=== PATIENT | male | born 1950 | race Caucasian/White ===

== ENCOUNTER 2016-06-07 20:38 | Emergency (ER) | payer OTHER ==
[~2016-06-07] VITALS: Ht 177.8 cm; Wt 118.5 kg
[~2016-06-07 20:38] MED LIST: ATOR80TA PO; BENZ100 PO; FLUT50I NASAL; GLUCTAB PO; MELO15TA2 PO; NACL.65%I; OMEP20TA PO; ULTR50TA PO
[2016-06-07 20:40] VITALS: BP 162/70; PULSE 80; RESP 16; TEMP 98.2; O2SAT 99
[2016-06-07] MEDS ORDERED: SODIUM CHLORIDE 0.9% FLUSH 5 ML FLUSH IVF PRN (21:00)
[2016-06-07 21:04] VITALS: BP 162/70; PULSE 68; RESP 16; O2SAT 99
[2016-06-07 21:40] VITALS: BP 138/72; PULSE 74; RESP 16; O2SAT 100
[2016-06-07 21:40] LABS: GLUCOSE,URINE NEG (NEG); KETONE, URINE NEG (NEG); NITRITE,URINE NEG (NEG)
--- NOTE | 2016-06-07 21:43 | PD ---
HPI Chief Complaint: Syncope/Near-Syncope Time Seen by Provider: 20:46 Travel History International Travel<30 days: No Contact w/Intl Traveler<30days: No Traveled to known affect area: No History of Present Illness HPI The patient 65 years old. He has been constipated for one day and a half. He has a history of invasive vagal syncope. While attempting to defecate, the patient loses consciousness. This is happened 4 times today. The patient has been unable to urinate throughout the course of the day as well. Positive flatus reported. No vomiting reported. He has been admitted past due to recurrent syncope episodes of coughing, approximately 10 months prior. Neurology , cardiology, and pulmonology evaluations were performed. Patient was found to have asthmatic bronchitis however workups otherwise including EEG, carotid ultrasound, Holter monitor evaluation, echocardiogram, lab work and routine imaging were unremarkable. The patient was advised to use omeprazole and saline nasal irrigation upon discharge. PFSH Past Medical History Asthma: No Blood Disorders: No Heart Rhythm Problems: No Cancer: No Cardiovascular Problems: Yes High Cholesterol: Yes Chemotherapy: No Chest Pain: No Congestive Heart Failure: No COPD: No Diabetes: Yes Patient Takes Glucophage: Yes Diminished Hearing: No Gastrointestinal Disorders: No Genitourinary: No Hypertension: No Immune Disorder: No Implanted Vascular Access Dvce: Yes Musculoskeletal: Yes (rotator cuff sx,cervical spinal fusion c5-c6,carpal tunnel) Neurologic: No Psychiatric: No Respiratory: Yes Immunizations Current: Yes Radiation Therapy: No Sleep Apnea: No Thyroid Disease: No ?: Not Past Surgical History Body Medical Devices: c5-c6 plate and screw to right rotator Other Surgery: Yes Social History Alcohol Use: No Tobacco Use: No Substance Use: No Allergies-Medications (Allergen,Severity, Reaction): Coded Allergies: Iodine (Verified Allergy, Severe, 06/07/16) Shellfish (Verified Allergy, Severe, 06/07/16) Vicodin (Verified Allergy, Severe, 06/07/16) Morphine (Verified Allergy, Mild, 06/07/16) Reported Meds & Prescriptions Reported Meds & Active Scripts Active Polyethylene Glycol 3350 Powder (Polyethylene Glycol) 17 Gm Pow 17 Gm PO ONCE Percocet (Oxycodone-Acetaminophen) 5-325 mg Tab 2 Tab PO Q6H PRN Reported Omeprazole 20 Mg Tab 20 Mg PO DAILY Metformin ER (Metformin HCl) 500 Mg Agustin 500 Mg PO DAILY With evening meal Atorvastatin (Atorvastatin Calcium) 40 Mg Tab 40 Mg PO HS Review of Systems Except as stated in HPI: all other systems reviewed are Neg Physical Exam Narrative GENERAL: 65 M, NAD, WNWD, no acute distress RECTAL: Pt refused rectal exam however states he felt stool whilst in attempt to self disimpact. SKIN: Warm and dry. HEAD: Atraumatic. Normocephalic. EYES: Pupils equal and round. No scleral icterus. No injection or drainage. ENT: No nasal bleeding or discharge. Mucous membranes pink and moist. NECK: Trachea midline. No JVD. CARDIOVASCULAR: Regular rate and rhythm. RESPIRATORY: No accessory muscle use. Clear to auscultation. Breath sounds equal bilaterally. GASTROINTESTINAL: Abdomen soft, non-tender, nondistended. Hepatic and splenic margins not palpable. MUSCULOSKELETAL: Extremities without clubbing, cyanosis, or edema. No obvious deformities. NEUROLOGICAL: Awake and alert. No obvious cranial nerve deficits. Motor grossly within normal limits. Five out of 5 muscle strength in the arms and legs. Normal speech. PSYCHIATRIC: Appropriate mood and affect; insight and judgment normal. Data Data Last Documented VS Vital Signs Date Time Temp Pulse Resp B/P Pulse Ox O2 Delivery O2 Flow Rate FiO2 06/07/16 23:53 77 16 147/73 99 06/07/16 21:04 Room Air 06/07/16 20:40 98.2 VS reviewed Orders Electrocardiogram (06/07/16 20:52) Basic Metabolic Panel (Bmp) (06/07/16 20:52) Complete Blood Count With Diff (06/07/16 20:52) Magnesium (Mg) (06/07/16 20:52) Troponin I (06/07/16 20:52) Urinalysis - C+S If Indicated (06/07/16 20:52) Blood Glucose (06/07/16 20:52) Ecg Monitoring (06/07/16 20:52) Iv Access Insert/Monitor (06/07/16 20:52) Oximetry (06/07/16 20:52) Sodium Chloride 0.9% Flush (Ns Flush) (06/07/16 21:00) Urinary Catheter Insert/Apply (06/07/16 20:52) Oxycodone-Acetamin 5-325 Mg (Percocet (06/07/16 23:45) Labs Laboratory Tests Test 06/07/16 06/07/16 21:20 21:50 Urine Collection Type VOIDED Urine Color YELLOW Urine Turbidity CLEAR Urine pH 6.0 Urine Specific [place] 1.030 Urine Protein NEG mg/dL Urine Glucose (UA) NEG mg/dL Urine Ketones NEG mg/dL Urine Occult Blood MOD Urine Nitrite NEG Urine Bilirubin NEG Urine Leukocyte Esterase NEG Urine WBC 0-2 /hpf Urine Squamous Epithelial 0-3 /hpf Cells Urine Mucus FEW /lpf Microscopic Urinalysis Comment CULT NOT INDICATED White Blood Count 15.4 TH/MM3 Red Blood Count 4.53 MIL/MM3 Hemoglobin 13.9 GM/DL Hematocrit 41.1 % Mean Corpuscular Volume 90.9 FL Mean Corpuscular Hemoglobin 30.7 PG Mean Corpuscular Hemoglobin 33.8 % Concent Red Cell Distribution Width 12.8 % Platelet Count 253 TH/MM3 Mean Platelet Volume 8.7 FL Neutrophils (%) (Auto) 84.5 % Lymphocytes (%) (Auto) 10.2 % Monocytes (%) (Auto) 4.2 % Eosinophils (%) (Auto) 0.3 % Basophils (%) (Auto) 0.8 % Neutrophils # (Auto) 13.1 TH/MM3 Lymphocytes # (Auto) 1.6 TH/MM3 Monocytes # (Auto) 0.6 TH/MM3 Eosinophils # (Auto) 0.0 TH/MM3 Basophils # (Auto) 0.1 TH/MM3 CBC Comment AUTO DIFF Differential Comment AUTO DIFF CONFIRMED Platelet Estimate NORMAL Platelet Morphology Comment NORMAL Sodium Level 144 MEQ/L Potassium Level 4.0 MEQ/L Chloride Level 110 MEQ/L Carbon Dioxide Level 26.6 MEQ/L Anion Gap 7 MEQ/L Blood Urea Nitrogen 15 MG/DL Creatinine 1.10 MG/DL Estimat Glomerular Filtration 67 ML/MIN Rate Random Glucose 104 MG/DL Calcium Level 9.1 MG/DL Magnesium Level 2.4 MG/DL Troponin I LESS THAN 0.02 NG/ML [facility] Medical Decision Making Medical Screen Exam Complete: Yes Emergency Medical Condition: Yes Differential Diagnosis Constipation, obstruction, arrhythmia, electrolyte imbalance Narrative Course CBC & BMP Diagram 06/07/16 21:50 Tn < 0.02 Patient reassessed a few times. Is complaining involved into pain in the region of the right groin where palpable hernia was appreciable. He complained about pain in the rectum due to constipation. Rectal exam was refused. He did state that a fair amount of liquid stool was passed today and that he felt hard stool in the vault while trying to disimpact himself today. Continued application of Fleet enemas coupled with aggressive oral hydration discussed. At home constipation remedies were discussed. MiraLAX as a last resort was discussed. We'll provide the patient with some Percocet for control of pain overnight, unlikely to worsen hard stool in rectal vault, a plan with which the patient was quite amenable. Return precautions discussed. present throughout. He is ready for discharge. Apparent syncopal type episodes were observed by me while the patient was on a monitor. Heart rhythm and rate and O2 sat remained unchanged during the apparent episodes which lasted less than 1- 2 seconds. No blood pressure change occurred. Skin remained warm and dry during apparent syncope type episodes. These were also observed a few times by the nurse as well. Diagnosis Primary Impression: Constipation Qualified Code: K59.00 - Constipation, unspecified constipation type Additional Impression: Syncope, vasovagal Referrals: Primary Care Physician 1 day Additional Instructions: You have a choice when it comes to health care, and we are glad that you chose [facility]. Hopefully, we have met your expectations on today's visit. You are welcome to return to [facility] at any time, as we are committed to meeting the health care needs of our community. Med/Other Pt SpecificInfo: Prescription(s) given Scripts Polyethylene Glycol 3350 Powder 17 Gm Pow17 Gm PO ONCE #1 BOTTLE Ref 0 Prov:Vince Cortez MD 06/07/16 Oxycodone-Acetaminophen (Percocet)5-325 mg Tab2 Tab PO Q6H PRN (PAIN SCALE 6 TO 10) #6 TAB Ref 0 Prov:Vince Cortez MD 06/07/16 Disposition: 01 DISCHARGE HOME Condition: Stable Vince Cortez MD Jun 07, 2016 21:43
[2016-06-07] MEDS ORDERED: OMEP20TA PO (21:47)
[2016-06-07] MEDS ORDERED: METF500T4 PO (21:47)
[2016-06-07] MEDS ORDERED: ATOR40TA16 PO (21:47)
[2016-06-07 21:50] LABS: BLOOD, URINE MOD (NEG)
[2016-06-07 21:52] LABS: METHOD OF COLLECTION VOIDED; URINE COLOR YELLOW (YELLW/STRAW); WBC, URINE 0-2 /hpf (0-5)
[2016-06-07 21:53] LABS: COMMENT (UR) CULT NOT INDICATED; CULTURE IF INDICATED CULT NOT INDICATED; MUCUS URINE FEW /lpf (OCC); SQUAMOUS EPITHELIAL CELL URINE 0-3 /hpf (0-5)
[2016-06-07 22:16] LABS: CHLORIDE 110 MEQ/L (98-107); SODIUM (NA) 144 MEQ/L (136-145)
[2016-06-07 22:19] LABS: ANION GAP 7 MEQ/L (5-15); AUTOMATED NEUTROPHIL # 13.1 TH/MM3 (1.8-7.7); BASOPHIL # 0.1 TH/MM3 (0-0.2); BASOPHIL % 0.8 % (0.0-2.0); BICARBONATE 26.6 MEQ/L (21.0-32.0); BLOOD UREA NITROGEN 15 MG/DL (7-18); EOSINOPHIL % 0.3 % (0.0-4.0); HEMATOCRIT 41.1 % (39.0-51.0); LYMPH % 10.2 % (9.0-44.0); LYMPHOCYTE # 1.6 TH/MM3 (1.0-4.8); MAGNESIUM 2.4 MG/DL (1.5-2.5); MEAN CELL VOLUME 90.9 FL (80.0-100.0); MEAN CORPUSCULAR HEMOGLOBIN 30.7 PG (27.0-34.0); MEAN CORPUSCULAR HGB CONC 33.8 % (32.0-36.0); MONO % 4.2 % (0.0-8.0); NEUT % 84.5 % (16.0-70.0); PLATELET COUNT 253 TH/MM3 (150-450); RED BLOOD COUNT 4.53 MIL/MM3 (4.50-5.90); RED CELL DISTRIBUTION WIDTH 12.8 % (11.6-17.2); WHITE BLOOD COUNT 15.4 TH/MM3 (4.0-11.0)
[2016-06-07 22:20] LABS: HEMO FLAGS AUTO DIFF
[2016-06-07 22:23] LABS: GLOMERULAR FILTRATION RATE 67 ML/MIN (>89)
[2016-06-07 22:46] LABS: PLATELET ESTIMATE SMEAR NORMAL (NORMAL); PLATELET MORPHOLOGY NORMAL (NORMAL); SCAN/DIFF AUTO DIFF CONFIRMED
[2016-06-07] MEDS ORDERED: PERC5TAB12 PO (23:43)
[2016-06-07] MEDS ORDERED: POLY17S PO (23:43)
[2016-06-07] MEDS ORDERED: oxyCODONE/ACETAMINOPHEN 5 MG/325 MG TAB PO ONE (23:45)
[2016-06-07 23:53] VITALS: BP 147/73
--- NOTE | 2016-06-08 20:10 | EKG ---
Date Performed: 06/07/2016 Time Performed: 21:08:20 PTAGE: 65 years EKG: Sinus rhythm Indeterminate axis Borderline ECG PREVIOUS TRACING : 08/05/2015 09.31 Compared to prior tracing no significant change DOCTOR: Mohamud Abernathy Interpretating Date/Time 06/08/2016 20:09:43
== END 2016-06-08 00:10 | disposition home or self-care (01) ==
LOC: PHED 20:38
DX: K59.00 Constipation, unspecified (principal); R55 Syncope and collapse; E78.00 Pure hypercholesterolemia, unspecified; E11.9 Type 2 diabetes mellitus without complications; R94.31 Abnormal electrocardiogram [ECG] [EKG]
CPT/HCPCS: 80048; 81001; 83735; 84484; 85025; 93005; 99284; P9612

== ENCOUNTER 2016-06-16 19:52 | Emergency (ER) | payer OTHER ==
[~2016-06-16] VITALS: Ht 177.8 cm; Wt 112.0 kg
[~2016-06-16 19:52] MED LIST changes: +ATOR40TA16 PO; -ATOR80TA PO; -BENZ100 PO; -FLUT50I NASAL; -GLUCTAB PO; -MELO15TA2 PO; +METF500T4 PO; -NACL.65%I; +PERC5TAB12 PO; +POLY17S PO; -ULTR50TA PO
[2016-06-16 22:11] VITALS: BP 144/66; PULSE 81; RESP 18; TEMP 98.4; O2SAT 98
[2016-06-16 23:00] VITALS: BP 140/62; PULSE 81; RESP 18; O2SAT 99
--- NOTE | 2016-06-16 23:02 | PD ---
HPI Chief Complaint: Foreign Body Time Seen by Provider: 22:56 Travel History International Travel<30 days: No Contact w/Intl Traveler<30days: No Traveled to known affect area: No History of Present Illness HPI The patient is a 65-year-old male that came in because he had a pill stick in his throat, a Percocet. He states it stuck a niece throat for about an hour but he has been swallowing normally and the sensation is totally gone at this time. When he was waiting in the lobby he apparently fell forward injuring his shoulder and his left knee. He did not lose consciousness. The patient states she "passed out". Others at the scene including are emergency department geoscience laboratory technician, Osmany Penny felt that this fall may have been feigned in order to get attention and get ahead and the line to be seen earlier. The patient has no problem with the pill stuck in the throat now, the symptoms have totally resolved. He does complain of left shoulder pain and left knee pain because of the "fall". The patient states he is allergic to Vicodin and probably allergic to Percocet. He can take tramadol without a problem. He is itching and his throat feels tight. He would like the Benadryl. PFSH Past Medical History Asthma: No Blood Disorders: No Heart Rhythm Problems: No Cancer: No Cardiovascular Problems: Yes High Cholesterol: Yes Chemotherapy: No Chest Pain: No Congestive Heart Failure: No COPD: No Diabetes: Yes Patient Takes Glucophage: Yes Diminished Hearing: No Gastrointestinal Disorders: No Genitourinary: No Hypertension: No Immune Disorder: No Implanted Vascular Access Dvce: Yes Musculoskeletal: Yes (rotator cuff sx,cervical spinal fusion c5-c6,carpal tunnel) Neurologic: No Psychiatric: No Respiratory: Yes Immunizations Current: Yes Radiation Therapy: No Sleep Apnea: No Thyroid Disease: No Influenza Vaccination: Yes Past Surgical History Body Medical Devices: c5-c6 plate and screw to right rotator Other Surgery: Yes Social History Alcohol Use: No Tobacco Use: No Substance Use: No Allergies-Medications (Allergen,Severity, Reaction): Coded Allergies: Iodine (Verified Allergy, Severe, 06/07/16) Shellfish (Verified Allergy, Severe, 06/07/16) Vicodin (Verified Allergy, Severe, 06/07/16) Morphine (Verified Allergy, Mild, 06/07/16) Reported Meds & Prescriptions Reported Meds & Active Scripts Active Tramadol (Tramadol HCl) 50 Mg Tab 50 Mg PO Q4H PRN Polyethylene Glycol 3350 Powder (Polyethylene Glycol) 17 Gm Pow 17 Gm PO ONCE Percocet (Oxycodone-Acetaminophen) 5-325 mg Tab 2 Tab PO Q6H PRN Reported Omeprazole 20 Mg Tab 20 Mg PO DAILY Metformin ER (Metformin HCl) 500 Mg Agustin 500 Mg PO DAILY With evening meal Atorvastatin (Atorvastatin Calcium) 40 Mg Tab 40 Mg PO HS Review of Systems Except as stated in HPI: all other systems reviewed are Neg Physical Exam Narrative GENERAL: Well-nourished, alert and oriented, obese patient in slight apparent distress with his left shoulder and left knee pain. The patient also has low back pain which she states is a 1/10. He states he has a slight burning sensation on his right thigh.. SKIN: Warm and dry. No skin rashes seen. HEAD: Normocephalic. EYES: No scleral icterus. No injection or drainage. NECK: Supple, trachea midline. No JVD or lymphadenopathy. No airway blockages noted and there is no stridor present. CARDIOVASCULAR: Regular rate and rhythm without murmurs, gallops, or rubs. RESPIRATORY: Breath sounds equal bilaterally. No accessory muscle use. GASTROINTESTINAL: Abdomen soft, non-tender, nondistended. MUSCULOSKELETAL: No cyanosis, or edema. BACK: Nontender without obvious deformity. No CVA tenderness. Data Data Last Documented VS Vital Signs Date Time Temp Pulse Resp B/P Pulse Ox O2 Delivery O2 Flow Rate FiO2 06/16/16 22:11 98.4 81 18 144/66 98 Orders Knee, Complete (4vws) (06/16/16 23:04) Shoulder, Complete (>2vws) (06/16/16 23:04) Splint Or Brace Apply/Monitor (06/17/16 01:01) Diphenhydramine (Benadryl) (06/17/16 01:15) MDM Medical Decision Making Medical Screen Exam Complete: Yes Emergency Medical Condition: Yes Medical Record Reviewed: Yes Interpretation(s) X-rays of the left knee show no acute disease. X-rays of the left shoulder show degenerative changes but no fracture or dislocation. Differential Diagnosis Rotator cuff tear, fracture shoulder, dislocation shoulder, fracture knee, contusion knee, contusion shoulder Narrative Course The patient may have a rotator cuff tear but this is more likely a contusion of the left shoulder. The patient will be given a sling and he should follow-up with orthopedic physician. Diagnosis Primary Impression: Contusion of left shoulder Additional Impressions: Contusion of left knee Allergy to pain medication Additional Instructions: As we discussed, follow-up with an orthopedic physician. A Rotator cuff tear is still possible. By your history, you are allergic to Vicodin and Percocet. Med/Other Pt SpecificInfo: Prescription(s) given Scripts Tramadol 50 Mg Tab50 Mg PO Q4H PRN (PAIN) #30 TAB Ref 0 Prov:Moises Juarez MD 06/17/16 Disposition: 01 DISCHARGE HOME Condition: Stable Moises Juarez MD Jun 16, 2016 23:02
[2016-06-17] VITALS: BP 138/68; PULSE 82; RESP 18; O2SAT 98
--- NOTE | 2016-06-17 00:14 | RADHPO ---
EXAM DATE/TIME: 06/16/2016 23:49 [facility] COMPARISON: No previous studies available for comparison. INDICATIONS : Patient states he fell off a scale tonight, left shoulder pain. MEDICAL HISTORY : None. SURGICAL HISTORY : None. ENCOUNTER: Initial ACUITY: 1 day PAIN SCORE: 9/10 LOCATION: Left Shoulder FINDINGS: Moderate hypertrophic changes of the acromioclavicular joint are noted. No fracture or dislocation. T here is a small well-corticated loose body superior to the humeral head. No osteophytosis of the dist al acromion. Glenohumeral joint is approximated. CONCLUSION: Degenerative changes. Mayco Tong MD on June 17, 2016 at 0:13 Board Certified Radiologist. This report was verified electronically.
--- NOTE | 2016-06-17 00:14 | RADHPO ---
EXAM DATE/TIME: 06/16/2016 23:56 [facility] COMPARISON: No previous studies available for comparison. INDICATIONS : Patient states he fell off a scale tonight, left knee pain. MEDICAL HISTORY : None. SURGICAL HISTORY : None. ENCOUNTER: Initial ACUITY: 1 day PAIN SCORE: 7/10 LOCATION: Left Knee FINDINGS: Four view examination of the left knee demonstrates no evidence of fracture or dislocation. Bony min eralization is normal. The articular surfaces are intact. The suprapatellar soft tissues have a nor mal configuration. CONCLUSION: No acute disease. Mayco Tong MD on June 17, 2016 at 0:12 Board Certified Radiologist. This report was verified electronically.
[2016-06-17] MEDS ORDERED: TRAM50TA PO (01:07)
[2016-06-17] MEDS ORDERED: diphenhydrAMINE HCL 25 MG CAP PO ONE (01:15)
[2016-06-17 01:30] VITALS: BP 142/68
== END 2016-06-17 01:30 | disposition home or self-care (01) ==
LOC: PHEFT 19:52
DX: S80.02XA Contusion of left knee, initial encounter (principal); S40.012A Contusion of left shoulder, initial encounter; T50.905A Adverse effect of unspecified drugs, medicaments and biological substances, initial encounter; E78.00 Pure hypercholesterolemia, unspecified; E11.9 Type 2 diabetes mellitus without complications; Z98.1 Arthrodesis status; W19.XXXA Unspecified fall, initial encounter; Y93.9 Activity, unspecified; Y92.238 Other place in hospital as the place of occurrence of the external cause; Y99.9 Unspecified external cause status
CPT/HCPCS: 73030; 73564; 99283